=== PATIENT | male | born 1960 | race Caucasian/White ===

== ENCOUNTER 2016-08-19 21:56 | Emergency (ER) | payer BC ==
[~2016-08-19] VITALS: Ht 170.2 cm; Wt 68.0 kg
--- NOTE | ~2016-08-19 | EKG ---
[address] [address] ELECTROCARDIOGRAM REPORT Name: DORA ESPOSITOHELNE Ramos Room #: [facility] [id number] Admission: 08/19/16 Attend Phys: Discharge: 08/19/16 Date of : 60 Report #: [id number] THIS REPORT FOR: //name// [facility] ED Test Date: 2016-08-19 Test Time: 22:16:22 Pat Name: AKANKSHA ESPOSITO Department: Room: Gender: Process Trainer: CARINE : 1960 Requested By: Lemuel Kang Order Number: [id number] MD: Kenneth Allen Measurements Intervals [place] Rate: 79 P: 49 WV: 131 QRS: 56 QRSD: 89 T: 11 QT: 364 QTc: 418 Interpretive Statements Sinus rhythm No significant abnormality No previous ECG available for comparison Electronically Signed On 08-20-2016 8:31:05 CDT by Kenneth Allen [email or web address] <ELECTRONICALLY SIGNED> By: Kenneth Allen MD, [facility] 08/20/16 0831 2216 2216 Kenneth Allen MD, FACC /EPI
[2016-08-19 22:28] LABS: ABSOLUTE NEUTROPHILS 5.7 thou/uL (1.4-8.2); BASOPHILS 0.4 % (0.0-2.0); EOSINOPHILS 0.2 % (0.0-3.0); HEMATOCRIT 46.3 % (42.0-52.0); HEMOGLOBIN 15.8 gm/dL (14.0-18.0); LYMPHOCYTES 29.3 % (24.0-44.0); MCH 30.6 pg (26.0-34.0); MCHC 34.2 g/dL (28.0-37.0); MCV 89.7 fL (80.0-100.0); MONOCYTES 7.9 % (1.0-8.0); PLATELET COUNT 199 thou/uL (150-400); POLYS 62.2 % (36.0-66.0); RBC 5.17 mil/uL (4.50-6.00); RDW 13.5 % (10.5-14.5); WBC 9.2 thou/uL (4.0-11.0)
[2016-08-19 22:36] LABS: CALCIUM 9.4 mg/dL (8.5-10.1); CREATININE 0.9 mg/dL (0.6-1.3); POTASSIUM 3.4 mmol/L (3.5-5.1)
[2016-08-19 22:42] LABS: TOTAL BILIRUBIN 0.8 mg/dL (<0.1-1.0); TOTAL PROTEIN 7.8 g/dL (6.4-8.2)
[2016-08-19 22:49] LABS: MANUAL DIFF NO
[2016-08-19] MEDS ORDERED: ANTIVERT25 MG PO (23:17)
[2016-08-19 23:29] VITALS: BP 142/87
== END 2016-08-19 23:31 | disposition home or self-care (01) ==
LOC: ER 21:56
PROVIDERS: Physician Assistant
DX: R42 Dizziness and giddiness (principal); R11.2 Nausea with vomiting, unspecified